=== PATIENT | female | born 1985 | race Caucasian/White ===

== ENCOUNTER → 2016-11-26 | Outpatient (REF) | payer OTHER | LOC: M LAB REF 17:52 | PROVIDERS: ATTEND Physician Assistant | DX: J20.9 Acute bronchitis, unspecified (principal); Z20.2 Contact with and (suspected) exposure to infections with a predominantly sexual mode of transmission ==

== ENCOUNTER → 2016-12-07 | Outpatient (REF) | payer OTHER ==
[2016-12-07 19:15] LABS: PERCENT SATURATION 30.7 % (13.2-37.4)
== END ==
LOC: M LAB REF 17:26
PROVIDERS: ATTEND Internal Medicine
DX: D50.9 Iron deficiency anemia, unspecified (principal)

== ENCOUNTER → 2017-02-22 | Outpatient (CLI) | payer OTHER | LOC: M WUC 15:25 | PROVIDERS: ATTEND Nurse Practitioner Women's Health | DX: Z11.3 Encounter for screening for infections with a predominantly sexual mode of transmission (principal) ==

== ENCOUNTER → 2017-02-22 | Outpatient (CLI) | payer OTHER ==
[2017-02-22 18:46] LABS: BLOOD UREA NITROGEN 14 MG/DL (7-18); CREATININE FOR GFR 0.83 MG/DL (0.55-1.02); GLOMERULAR FILTRATION RATE > 60.0 (>60)
== END ==
LOC: M WUC 15:29
PROVIDERS: ATTEND Physician Assistant
DX: M51.26 Other intervertebral disc displacement, lumbar region (principal)

== ENCOUNTER → 2017-12-21 | Outpatient (REF) | payer OTHER ==
[2017-12-21 13:14] LABS: IRON (FE) 64 UG/DL (50-170); PERCENT SATURATION 23.4 % (13.2-45.0); TOTAL IRON BINDING CAPACITY 274 UG/DL (250-450)
[2017-12-21 13:35] LABS: VITAMIN B12 LEVEL 554 PG/ML (247-911)
== END ==
LOC: M LAB REF 12:05
DX: D50.9 Iron deficiency anemia, unspecified (principal)

== ENCOUNTER 2018-03-02 02:21 | Emergency (ER) | payer OTHER ==
[2018-03-02] MEDS: EXPOSURE KIT-ADULT 7 DAY SUPPLY PO (03:00)
[2018-03-02] MEDS: HEPATITIS B IMMUNE GLOBULIN 5ML INJ (J1571) IM (03:03)
[2018-03-02 03:14] LABS: BASO % 0.5 % (0.0-1.0); EOS # 0.2 10^3/uL (0.0-0.50); EOS % 2.6 % (0.0-3.0); HEMATOCRIT 37.2 % (36.0-47.0); HEMOGLOBIN 12.5 g/dl (12.0-15.5); IMMATURE GRANULOCYTE % 0.5 % (0-3.0); LYMPH # 1.2 10^3/uL (1.5-4.5); LYMPH % 18.6 % (24.0-44.0); MEAN CORPUSCULAR HEMOGLOBIN 30.3 pg (27.0-33.0); MEAN CORPUSCULAR HGB CONC 33.6 g/dl (32.0-36.5); MEAN CORPUSCULAR VOLUME 90.1 fl (80.0-96.0); MONO # 0.8 10^3/uL (0.0-0.8); NEUTROPHILS # 4.3 10^3/uL (1.8-7.7); NEUTROPHILS % 65.8 % (36.0-66.0); PLATELET COUNT, AUTOMATED 240 10^3/uL (150-450); RED BLOOD COUNT 4.13 10^6/uL (4.00-5.40); RED CELL DISTRIBUTION WIDTH 12.7 % (11.5-14.5); WHITE BLOOD COUNT 6.5 10^3/uL (4.0-10.0)
[2018-03-02 03:38] LABS: ALBUMIN/GLOBULIN RATIO 0.95 (1.00-1.93); ALKALINE PHOSPHATASE 72 U/L (45-117); ALT/SGPT 25 U/L (12-78); ANION GAP 8 MEQ/L (8-16); AST/SGOT 15 U/L (7-37); BILIRUBIN,TOTAL 0.3 MG/DL (0.2-1.0); BLOOD UREA NITROGEN 18 MG/DL (7-18); CALCIUM LEVEL 8.5 MG/DL (8.5-10.1); CARBON DIOXIDE LEVEL 28 MEQ/L (21-32); CHLORIDE LEVEL 105 MEQ/L (98-107); CREATININE FOR GFR 0.77 MG/DL (0.55-1.30); GLOMERULAR FILTRATION RATE > 60.0 (>60); GLUCOSE, FASTING 96 MG/DL (70-100); POTASSIUM SERUM 4.6 MEQ/L (3.5-5.1); SODIUM LEVEL 141 MEQ/L (136-145); TOTAL PROTEIN 8.2 GM/DL (6.4-8.2)
[2018-03-02 04:16] LABS: CONTROL LINE INT CTR LINE PRESENT; HIV EXPOSED PT 1 NEGATIVE (NEGATIVE); HIVEXPOSED0 NEGATIVE (NEGATIVE)
[2018-03-04 08:58] LABS: HEPATITIS B SURFACE ANTIBODY POSITIVE (POSITIVE)
[2018-03-04 09:37] LABS: HEPATITIS C VIRUS ABY INDEX 0.1 INDEX (<0.8)
[2018-03-04 09:38] LABS: HEPATITIS B SURFACE ANTIGEN NEGATIVE (NEGATIVE)
== END 2018-03-02 03:26 | disposition home or self-care (01) ==
LOC: M ED 02:21
DX: Z77.21 Contact with and (suspected) exposure to potentially hazardous body fluids (principal)
CPT/HCPCS: J1571

== ENCOUNTER → 2018-03-15 | Outpatient (CLI) | payer OTHER | LOC: M WUC 11:28 | DX: Z11.3 Encounter for screening for infections with a predominantly sexual mode of transmission (principal) | CPT/HCPCS: 36415 ==

== ENCOUNTER → 2018-10-29 | Outpatient (CLI) | payer OTHER ==
[~2018-10-29] MED LIST: ALLE180T33 PO; GLUC500C5 PO; IRON325T7 PO; MELO15TA28 PO; RALT40TA PO; TIZA4CAP; TRUVTAB PO
[2018-10-29 09:59] LABS: BASO % 0.7 % (0.0-1.0); EOS # 0.2 10^3/uL (0.0-0.50); EOS % 5.2 % (0.0-3.0); HEMATOCRIT 37.9 % (36.0-47.0); HEMOGLOBIN 12.4 g/dl (12.0-15.5); LYMPH # 1.6 10^3/uL (1.5-4.5); LYMPH % 35.1 % (24.0-44.0); MEAN CORPUSCULAR HEMOGLOBIN 29.6 pg (27.0-33.0); MEAN CORPUSCULAR HGB CONC 32.7 g/dl (32.0-36.5); MEAN CORPUSCULAR VOLUME 90.5 fl (80.0-96.0); MONO # 0.5 10^3/uL (0.0-0.8); MONO % 10.7 % (0.0-5.0); NEUTROPHILS # 2.1 10^3/uL (1.8-7.7); NEUTROPHILS % 47.8 % (36.0-66.0); PLATELET COUNT, AUTOMATED 229 10^3/uL (150-450); RED BLOOD COUNT 4.19 10^6/uL (4.00-5.40); WHITE BLOOD COUNT 4.4 10^3/uL (4.0-10.0)
[2018-10-29 10:34] LABS: ALBUMIN 3.6 GM/DL (3.2-5.2); ALT/SGPT 33 U/L (12-78); BILIRUBIN,TOTAL 0.2 MG/DL (0.2-1.0); BLOOD UREA NITROGEN 10 MG/DL (7-18); CALCIUM LEVEL 8.3 MG/DL (8.5-10.1); CARBON DIOXIDE LEVEL 29 MEQ/L (21-32); CHLORIDE LEVEL 104 MEQ/L (98-107); CREATININE FOR GFR 0.78 MG/DL (0.55-1.30); GLOMERULAR FILTRATION RATE > 60.0 (>60); GLUCOSE, FASTING 88 MG/DL (70-100); HCG, SERUM QUANTITATIVE < 1.0 MIU/ML; POTASSIUM SERUM 3.6 MEQ/L (3.5-5.1); PROGESTERONE 0.36 NG/ML; SODIUM LEVEL 139 MEQ/L (136-145); TESTOSTERONE 24 NG/DL (14-76); TOTAL 25(OH) VITAMIN D 23.6 NG/ML (30.0-100.0); TOTAL PROTEIN 7.3 GM/DL (6.4-8.2)
--- NOTE | 2018-10-29 10:34 | REP ---
Clinical: Infertility. Technique: Transvaginal evaluation. Findings: Retroverted uterus measures 6.9 x 3.3 x 4.4 cm. Endometrial complex measures 9.4 mm thickness. No pelvic free fluid. Right ovary measures 3.7 x 2.0 x 3.3 cm and includes approximately 25 sub centimeter follicles measuring between 1.0 and 9.4 mm diameter along with 2.4 x 1.7 x 1.4 cm involuting follicle. Left ovary measures 3.0 x 2.2 x 2.7 cm and includes eight sub centimeter follicles between 2.0 and 8.7 mm diameter along with 1.4 x 1.0 cm involuting cyst / follicle. Impression: Normal appearance to the uterus. Primarily bilateral sub centimeter follicles as detailed above. Electronically Signed by Wily Rangel MD 10/29/2018 10:25 A
[2018-10-29 10:35] LABS: ESTRADIOL 44.6 PG/ML; FOLLICLE STIMULATING HORMONE 13.3 mIU/mL; LUTEINIZING HORMONE 6.6 mIU/mL; PROLACTIN 15.4 NG/ML
[2018-10-30 09:40] LABS: RUBELLA IgG QUALITATIVE IMMUNE (IMMUNE)
[2018-10-30 09:41] LABS: HEPATITIS B SURFACE ANTIGEN NEGATIVE (NEGATIVE)
[2018-10-30 10:09] LABS: HEPATITIS C VIRUS ABY INDEX < 0.0 INDEX (<0.8); HIV 1&2 SCREEN CENTAUR NEGATIVE (NEGATIVE)
[2018-11-06 00:06] LABS: ANTI MULLERIAN HORMONE 0.478 ng/mL (.); HERPES ZOSTER, VARICELLA IgG 1360 index (Immune >165); SMN1 COMMENTS Note (.); SMN1 INTERPRETATION Note (.); SMN1 METHOD/LIMITATIONS Note (.)
== END ==
LOC: M LAB 09:09
PROVIDERS: ATTEND Obstetrics & Gynecology Reproductive Endocrinology
DX: E28.9 Ovarian dysfunction, unspecified (principal)

== ENCOUNTER → 2019-04-25 | Outpatient (CLI) | payer OTHER ==
[~2019-04-25] MED LIST changes: +FERR325T82 PO; -IRON325T7 PO
[2019-04-25 09:15] LABS: THYROID STIMULATING HORMONE 2.25 uIU/ML (0.358-3.740)
[2019-04-25 09:37] LABS: PROGESTERONE 15.27 NG/ML
[2019-04-25 09:38] LABS: ESTRADIOL 81.5 PG/ML
== END ==
LOC: M LAB 08:26
PROVIDERS: ATTEND Obstetrics & Gynecology Reproductive Endocrinology
DX: E28.9 Ovarian dysfunction, unspecified (principal)

== ENCOUNTER → 2019-05-02 | Outpatient (CLI) | payer OTHER ==
[2019-05-02 09:45] LABS: HCG, SERUM QUANTITATIVE < 1.0 MIU/ML
[2019-05-02 10:08] LABS: PROGESTERONE 10.23 NG/ML
== END ==
LOC: M LAB 08:37
PROVIDERS: ATTEND Obstetrics & Gynecology Reproductive Endocrinology
DX: Z32.00 Encounter for pregnancy test, result unknown (principal)

== ENCOUNTER → 2019-05-27 | Outpatient (CLI) | payer OTHER ==
[2019-05-27 16:28] LABS: THYROID STIMULATING HORMONE 1.35 uIU/ML (0.358-3.740)
[2019-05-27 16:40] LABS: PROGESTERONE 20.73 NG/ML
== END ==
LOC: M LAB 15:35
PROVIDERS: ATTEND Obstetrics & Gynecology Reproductive Endocrinology
DX: E28.9 Ovarian dysfunction, unspecified (principal)

== ENCOUNTER → 2019-06-02 | Outpatient (CLI) | payer OTHER ==
[2019-06-02 12:26] LABS: HCG, SERUM QUANTITATIVE < 1.0 MIU/ML
[2019-06-02 13:54] LABS: PROGESTERONE 6.44 NG/ML
== END ==
LOC: M LAB 11:00
PROVIDERS: ATTEND Obstetrics & Gynecology Reproductive Endocrinology
DX: Z32.00 Encounter for pregnancy test, result unknown (principal)

== ENCOUNTER → 2019-06-06 | Outpatient (CLI) | payer OTHER ==
--- NOTE | 2019-06-06 14:28 | REP ---
Transvaginal pelvic sonography: History: Ovarian dysfunction. Follicle study. Findings: Uterine dimensions today are 7.3 x 3.7 x 4.2 cm. Endometrial echo is 1.1 cm thick and centrally placed. Uterus appears retroverted. No free fluid is seen. The overall dimensions of the right ovary are 3.4 x 2.3 x 1.9 cm. There are no follicles in the right ovary measuring greater than a centimeter. There are nine follicles in the right ovary ranging in size from 0.2-0.4 cm. The left ovary measures 3.0 x 1.6 x 2.3 cm. There are two follicles greater than a centimeter in the left ovary measured as follows: 1.2 x 0.6 and 1.0 x 0.8 cm. In addition, there are four follicles ranging in size from 0.2-0.4 cm in the left ovary. Impression: Ovarian follicle exam as above. Electronically Signed by Jarrod Kenney MD 06/06/2019 02:19 P
[2019-06-06 14:39] LABS: HCG, SERUM QUANTITATIVE < 1.0 MIU/ML
[2019-06-06 14:40] LABS: PROGESTERONE 0.46 NG/ML
[2019-06-06 14:41] LABS: FOLLICLE STIMULATING HORMONE 12.9 mIU/mL
== END ==
LOC: M LAB 13:25
PROVIDERS: ATTEND Obstetrics & Gynecology Reproductive Endocrinology
DX: E28.9 Ovarian dysfunction, unspecified (principal)

== ENCOUNTER → 2019-06-13 | Outpatient (CLI) | payer OTHER ==
--- NOTE | 2019-06-13 08:42 | REP ---
Pelvic ultrasound for follicle analysis: The studies performed with endovaginal imaging only. Right ovary: There is one follicle greater than 10 ml measuring 11.7 x 8.5 mm. Additionally, there are 10 follicles measuring 2.1 - 8.9 mm. The right ovary is normal size measuring 3.1 x 1.8 x 2.5 cm. Left ovary: There are two follicles greater than 10 units mm measuring 15.7 x 9.2 mm and 23.2 x 16.8 mm. There are five follicles in the 3.2 - 4.6 mm range. There is free fluid adjacent to the left ovary. The left ovary is normal size measuring 4.2 x 2.8 x 2.7 cm. The uterus is retroverted and normal size measuring 7.2 x 3.4 x 5.1 cm. The endometrial stripe measures 10 mm thickness and has a homogeneous appearance. Electronically Signed by Kb Yen MD 06/13/2019 08:34 A
[2019-06-13 08:45] LABS: ESTRADIOL 109.8 PG/ML; LUTEINIZING HORMONE 14.6 mIU/mL; PROGESTERONE 0.42 NG/ML
== END ==
LOC: M LAB 07:26
PROVIDERS: ATTEND Obstetrics & Gynecology Reproductive Endocrinology
DX: E28.9 Ovarian dysfunction, unspecified (principal)

== ENCOUNTER → 2019-06-30 | Outpatient (CLI) | payer OTHER ==
[2019-06-30 09:48] LABS: HCG, SERUM QUANTITATIVE < 1.0 MIU/ML
[2019-06-30 10:14] LABS: PROGESTERONE 51.46 NG/ML
== END ==
LOC: M LAB 08:37
PROVIDERS: ATTEND Obstetrics & Gynecology Reproductive Endocrinology
DX: Z32.00 Encounter for pregnancy test, result unknown (principal)

== ENCOUNTER → 2019-07-30 | Outpatient (CLI) | payer OTHER ==
--- NOTE | 2019-07-30 08:44 | REP ---
Clinical: Infertility. Technique: Transvaginal ultrasound examination with color evaluation. Findings: Uterus measures 7.4 x 3.5 x 5.0 cm. Endometrial complex measures 8.0 mm thickness. No discrete uterine or endometrial abnormalities appreciated. Right ovary measures 3.7 x 1.9 x 4.3 cm includes 10 x 5 mm follicle and approximately 10 sub centimeter follicles between 3 and 9 mm. Left ovary measures 4.1 x 3.0 x 2.5 cm and includes 10 mm hypoechoic structure likely representing hemorrhagic cyst and 27 x 12 mm follicle along with approximately nine sub centimeter follicles between 3 and 8 mm. Impression: Follicular study as detailed above. Electronically Signed by Wily Rangel MD 07/30/2019 08:35 A
[2019-07-30 10:00] LABS: ESTRADIOL 29.8 PG/ML; LUTEINIZING HORMONE 6.4 mIU/mL; PROGESTERONE 0.26 NG/ML
== END ==
LOC: M RAD 08:06
PROVIDERS: ATTEND Obstetrics & Gynecology Reproductive Endocrinology
DX: E28.9 Ovarian dysfunction, unspecified (principal)

== ENCOUNTER → 2019-08-05 | Outpatient (CLI) | payer OTHER ==
--- NOTE | 2019-08-05 14:21 | REP ---
TRANSVAGINAL PELVIC ULTRASOUND, FOLLICLE STUDY: Transvaginal pelvic ultrasound performed. Uterus measures 6.6 x 3.3 x 4.7 cm. Endometrial thickness is 4 mm. Right ovary measures 2.8 x 1.6 x 1.5 cm. There are two dominant follicles, which measure 9 x 10 mm and 8 x 11 mm. Approximately four other follicles are seen in the right ovary 4-8 mm in diameter. Left ovary measures 3.2 x 2.1 x 2.0 cm. There are three dominant follicles measuring 10 x 9 mm, 16 x 13 mm, and 12 x 19 mm. There are approximately four other follicles which range 3-8 mm in diameter. Electronically Signed by Kb Durham MD 08/05/2019 04:58 P
[2019-08-05 14:30] LABS: ESTRADIOL 45.8 PG/ML; LUTEINIZING HORMONE 6.6 mIU/mL; PROGESTERONE 0.39 NG/ML
== END ==
LOC: M RAD 12:13
PROVIDERS: ATTEND Obstetrics & Gynecology Reproductive Endocrinology
DX: E28.9 Ovarian dysfunction, unspecified (principal)

== ENCOUNTER → 2019-08-08 | Outpatient (CLI) | payer OTHER ==
--- NOTE | 2019-08-08 09:52 | REP ---
Clinical: Ovarian dysfunction. Technique: Transvaginal examination. Comparison: 08/05/2019. Findings: Uterus measures 7.4 x 3.1 x 5.2 cm. Endometrial complex measures 7.9 mm thickness and has a normal translaminar appearance. No endocervical fluid or free fluid is appreciated. Right ovary measures 2.6 x 1.7 x 1.6 cm and includes eight sub centimeter follicles between 2.4 mm and 9.8 mm. Left ovary measures 3.6 x 2.6 x 2.1 cm and includes 2.3 cm follicle, 2.3 cm complex cyst / follicle with debris level, and eight sub centimeter follicles between 3.1 and 9.1 mm. Impression: Trilaminar appearance to the endometrial complex. Follicles as noted above. Electronically Signed by Wily Rangel MD 08/08/2019 09:44 A
[2019-08-08 11:00] LABS: LUTEINIZING HORMONE 10.2 mIU/mL; PROGESTERONE 0.26 NG/ML
== END ==
LOC: M RAD 09:01
PROVIDERS: ATTEND Obstetrics & Gynecology Reproductive Endocrinology
DX: E28.9 Ovarian dysfunction, unspecified (principal)

== ENCOUNTER → 2019-08-18 | Outpatient (CLI) | payer OTHER ==
[2019-08-18 20:51] LABS: THYROID STIMULATING HORMONE 1.6 uIU/ML (0.358-3.740)
[2019-08-18 20:52] LABS: ESTRADIOL 64.3 PG/ML; PROGESTERONE 36.29 NG/ML
== END ==
LOC: M WUC 15:32
PROVIDERS: ATTEND Obstetrics & Gynecology Reproductive Endocrinology
DX: E28.9 Ovarian dysfunction, unspecified (principal)

== ENCOUNTER → 2019-08-25 | Outpatient (CLI) | payer OTHER ==
[2019-08-25 09:58] LABS: HCG, SERUM QUANTITATIVE < 1.0 MIU/ML
[2019-08-25 10:06] LABS: PROGESTERONE 32.51 NG/ML
== END ==
LOC: M WUC 08:17
PROVIDERS: ATTEND Obstetrics & Gynecology Reproductive Endocrinology
DX: Z32.00 Encounter for pregnancy test, result unknown (principal); Z79.899 Other long term (current) drug therapy

== ENCOUNTER → 2019-09-29 | Outpatient (CLI) | payer OTHER | LOC: M LAB 09:13 | PROVIDERS: ATTEND Obstetrics & Gynecology Reproductive Endocrinology | DX: E28.9 Ovarian dysfunction, unspecified (principal) ==

== ENCOUNTER → 2019-10-03 | Outpatient (CLI) | payer OTHER ==
--- NOTE | 2019-10-03 07:47 | REPVR ---
PROCEDURE INFORMATION: Exam: CT Maxillofacial Without Contrast, Sinus Exam date and time: 10/03/2019 7:26 AM Age: 34 years old Clinical indication: Condition or disease; Other: Recurrent maxillary sinusitis; Additional info: Acute recurrent maxillary sinusitis TECHNIQUE: Imaging protocol: CT Maxillofacial without contrast. Focus on the sinuses. Radiation optimization: All CT scans at this facility use at least one of these dose optimization techniques: automated exposure control; mA and/or kV adjustment per patient size (includes targeted exams where dose is matched to clinical indication); or iterative reconstruction. COMPARISON: CT Maxilofacial w/out contrast 07/23/2012 11:19 AM FINDINGS: Frontal sinuses: Normal. No air-fluid levels. Ethmoid air cells: Normal. No air-fluid levels. Sphenoid sinuses: Normal. No air-fluid levels. Maxillary sinuses: Normal. No air-fluid levels. Ostiomeatal units are patent. Orbits: Orbits are normal. Globes are unremarkable. Nasal cavity/Septum: There is nasal septal deviation to the right. Soft tissues: Unremarkable. Bones/joints: Unremarkable. IMPRESSION: Unremarkable sinuses. Electronically signed by: Zaheer العلي On 10/03/2019 07:47:10 AM
== END ==
LOC: M RAD 07:12
PROVIDERS: ATTEND Specialist
DX: J01.01 Acute recurrent maxillary sinusitis (principal); J34.2 Deviated nasal septum; J31.0 Chronic rhinitis

== ENCOUNTER → 2019-10-14 | Outpatient (CLI) | payer OTHER ==
[2019-10-14 10:36] LABS: HCG, SERUM QUANTITATIVE < 1.0 MIU/ML
[2019-10-14 11:08] LABS: ESTRADIOL 35.6 PG/ML; FOLLICLE STIMULATING HORMONE 14.3 mIU/mL; LUTEINIZING HORMONE 7.4 mIU/mL; PROGESTERONE 0.21 NG/ML
--- NOTE | 2019-10-17 09:48 | REP ---
Clinical: Infertility. Technique: Transvaginal examination. Findings: Uterus measures 6.8 x 3.3 x 5.1 cm. Endometrial complex measures 7.4 mm thickness and demonstrates normal trilaminar appearance. No pelvic or endocervical fluid. Right ovary measures 2.9 x 1.9 x 2.7 cm and includes 9 sub centimeter follicles measuring between 1.8 mm and 8.6 mm. Left ovary measures 3.2 x 2.0 x 2.3 cm includes 13 sub centimeter follicles measuring between 1.7 mm and 5.9 mm. A single complex cyst measures 10.5 x 8.1 mm. Small amount of free fluid in the pelvis noted. Impression: Bilateral sub centimeter follicles. Electronically Signed by Wily Rangel MD 10/17/2019 09:40 A
== END ==
LOC: M RAD 08:45
PROVIDERS: ATTEND Obstetrics & Gynecology Reproductive Endocrinology
DX: N83.202 Unspecified ovarian cyst, left side (principal); E28.9 Ovarian dysfunction, unspecified; Z79.899 Other long term (current) drug therapy

== ENCOUNTER → 2019-10-20 | Outpatient (CLI) | payer OTHER ==
--- NOTE | 2019-10-20 08:58 | REP ---
Clinical: Infertility. Comparison: 10/14/2019. Technique: Transvaginal ultrasound examination. Findings: Uterus measures 8.3 x 3.3 x 4.6 cm. Endometrial complex measures 3.6 mm thickness. Small amount of fluid in the left grisel pelvis adjacent to the ovary noted. Right ovary measures 4.2 x 2.2 x 3.2 cm and includes 10.1 x 8.1 mm, 16.8 x 12.1 mm, 11.8 x 9.7 mm, and 15.3 x 11.7 mm follicles along with seven sub centimeter follicles measuring between 1.6 mm and 8.4 mm. Left ovary measures 3.0 x 2.3 x 2.3 cm and includes 11.7 x 9.2 cm complex and eight sub centimeter follicles measuring between 1.8 mm and 8.8 mm. Impression: Bilateral follicles as noted above. Electronically Signed by Wily Rangel MD 10/20/2019 08:49 A
[2019-10-20 11:01] LABS: ESTRADIOL 72.8 PG/ML; LUTEINIZING HORMONE 7.4 mIU/mL; PROGESTERONE 0.21 NG/ML
== END ==
LOC: M RAD 08:02
PROVIDERS: ATTEND Obstetrics & Gynecology Reproductive Endocrinology
DX: E28.9 Ovarian dysfunction, unspecified (principal)

== ENCOUNTER → 2019-10-22 | Outpatient (CLI) | payer OTHER ==
--- NOTE | 2019-10-22 09:53 | REP ---
Clinical: Infertility. Comparison: 10/20/2019. Technique: Transvaginal ultrasound examination with color evaluation. Findings: Uterus measures 7.3 x 3.5 x 5.7 cm. Endometrial complex measures 9.6 mm thickness. Right ovary measures 4.8 x 1.6 x 4.9 cm with 14 x 10 mm, 20 x 10 mm, 16 x 8 mm, 13 x 8 mm, and 17 x 11 mm follicles along with five sub centimeter follicles measuring between 4 - 7 mm. Left ovary measures 2.6 x 2.0 x 2.6 cm with 10 x 8 mm and 10 x 7 mm follicles along with eight sub centimeter follicles measuring between 3 - 6 mm. 15 mm complex cyst also identified. Trace pelvic free fluid adjacent to the left ovary is nonspecific. Impression: Follicular study as noted above. Electronically Signed by Wily Rangel MD 10/22/2019 09:04 A
[2019-10-22 11:12] LABS: ESTRADIOL 172.4 PG/ML; LUTEINIZING HORMONE 9.3 mIU/mL; PROGESTERONE 0.21 NG/ML
== END ==
LOC: M RAD 08:30
PROVIDERS: ATTEND Obstetrics & Gynecology Reproductive Endocrinology
DX: E28.9 Ovarian dysfunction, unspecified (principal)

== ENCOUNTER → 2019-11-05 | Outpatient (CLI) | payer OTHER ==
[2019-11-05 14:17] LABS: ESTRADIOL 200.6 PG/ML; PROGESTERONE 12.43 NG/ML
== END ==
LOC: M LAB 12:37
PROVIDERS: ATTEND Obstetrics & Gynecology Reproductive Endocrinology
DX: E28.9 Ovarian dysfunction, unspecified (principal)

== ENCOUNTER → 2019-11-10 | Outpatient (CLI) | payer OTHER ==
[2019-11-10 11:00] LABS: HCG, SERUM QUANTITATIVE < 1.0 MIU/ML
[2019-11-10 11:06] LABS: PROGESTERONE 31.91 NG/ML
== END ==
LOC: M LAB 09:50
PROVIDERS: ATTEND Obstetrics & Gynecology Reproductive Endocrinology
DX: Z32.00 Encounter for pregnancy test, result unknown (principal)

== ENCOUNTER → 2019-11-13 | Outpatient (CLI) | payer OTHER ==
--- NOTE | 2019-11-13 12:26 | REP ---
Transvaginal pelvic sonography: History: Infertility. Findings: Uterine dimensions today are 8.5 x 3.2 x 5.6 cm. Endometrial stripe is 0.6 cm. It has a trilaminar appearance. No free fluid is seen. Overall dimensions of the right ovary today are 2.8 x 1.5 x 1.7 cm. There are no follicles larger than a centimeter in the right ovary. There are eight follicles within the right ovary ranging in size from 0.2-0.9 cm in greatest diameter. Left ovary's dimensions are 2.7 x 2.0 x 2.3 cm. There is a 1.0 x 0.6 x 0.9 cm partially collapsed appearing follicle in the left ovary and a 1.0 x 0.7 cm follicle. There are six follicles in the left ovary ranging in size from 0.2-0.6 cm. Impression: Ovarian follicle study as above. Electronically Signed by Jarrod Kenney MD 11/13/2019 12:18 P
[2019-11-13 12:52] LABS: HCG, SERUM QUANTITATIVE < 1.0 MIU/ML
[2019-11-13 12:54] LABS: ESTRADIOL 19.2 PG/ML; FOLLICLE STIMULATING HORMONE 16.7 mIU/mL; LUTEINIZING HORMONE 7.2 mIU/mL; PROGESTERONE 1.42 NG/ML
== END ==
LOC: M RAD 11:29
PROVIDERS: ATTEND Obstetrics & Gynecology Reproductive Endocrinology
DX: E28.9 Ovarian dysfunction, unspecified (principal); Z79.899 Other long term (current) drug therapy

== ENCOUNTER → 2019-11-19 | Outpatient (CLI) | payer OTHER ==
[2019-11-19 09:23] LABS: ESTRADIOL 212.4 PG/ML; PROGESTERONE 0.31 NG/ML
--- NOTE | 2019-11-19 15:33 | REP ---
Transvaginal pelvic sonography: History: Ovarian dysfunction. Follicle study. Findings: Uterine dimensions are normal measured at 6.9 x 3.2 x 5.2 cm. Endometrial stripe is 1.0 cm thick, trilaminar appearance . No focal uterine mass is seen. No free fluid is seen in the cul-de-sac. The overall dimensions of the right ovary are 3.8 x 2.5 x 2.8 cm. There are four follicles in the right ovary measuring greater than 1 cm as follows: 1.5 x 1.1, 1.3 x 0.9, 1.3 x 0.7, 1.1 x 0.4 cm. In addition, the right ovary contains nine follicles ranging in size from 0.1-0.3 cm. The overall dimensions of the left ovary are 2.9 x 2.3 x 3.0 cm. There is a 1.2 x 0.9 cm follicle left ovary and there are eight follicles in the left ovary ranging in size from 0.2-0.8 cm. Impression: Ovarian follicle study as above. Electronically Signed by Jarrod Kenney MD 11/19/2019 08:30 A
== END ==
LOC: M RAD 07:35
PROVIDERS: ATTEND Obstetrics & Gynecology Reproductive Endocrinology
DX: E28.9 Ovarian dysfunction, unspecified (principal)

== ENCOUNTER → 2019-11-21 | Outpatient (CLI) | payer OTHER ==
--- NOTE | 2019-11-21 07:41 | REPVR ---
PROCEDURE INFORMATION: Exam: US Pelvis, Transvaginal Exam date and time: 11/21/2019 7:05 AM Age: 34 years old Clinical indication: Screening exam; Fertility exam; Additional info: Infertility, ovarian dysfunction TECHNIQUE: Imaging protocol: Real-time transvaginal pelvic ultrasound with image documentation. Transvaginal imaging was used for better evaluation of the endometrium and adnexa. COMPARISON: Transvaginal NON- US 11/19/2019 7:51 AM FINDINGS: Uterus/cervix: Uterus measures 7.5 x 3.6 x 5.5 cm. Endometrial stripe is 8 mm. Nabothian cyst. Right adnexa: Right ovary measures 2.7 x 4.9 x 2.3 cm. There is a simple 2 x 1.2 cm right ovarian cyst. Two adjacent smaller simple appearing cysts measuring 1.6 x 1 and 1.5 x 0.8 cm are noted. There are 2 additional subcentimeter right ovarian follicles ranging from 4-6 mm. Left adnexa: Left ovary measures 3.2 x 3.8 x 2 cm. There is a 1.5 x 1.1 cm simple appearing left ovarian cyst. Five subcentimeter left ovarian follicles region in size from 2-6 mm. Free fluid: None. IMPRESSION: 1. Left ovary measures 3.2 x 3.8 x 2 cm. There is a 1.5 x 1.1 cm simple appearing left ovarian cyst. Five subcentimeter left ovarian follicles region in size from 2-6 mm. 2. Right ovary measures 2.7 x 4.9 x 2.3 cm. There is a simple 2 x 1.2 cm right ovarian cyst. Two adjacent smaller simple appearing cysts measuring 1.6 x 1 and 1.5 x 0.8 cm are noted. There are 2 additional subcentimeter right ovarian follicles ranging from 4-6 mm. Electronically signed by: Zelalem Ray On 11/21/2019 07:41:34 AM
[2019-11-21 09:29] LABS: ESTRADIOL 522.2 PG/ML; LUTEINIZING HORMONE 2.6 mIU/mL; PROGESTERONE 0.21 NG/ML
== END ==
LOC: M RAD 06:32
PROVIDERS: ATTEND Obstetrics & Gynecology Reproductive Endocrinology
DX: N83.201 Unspecified ovarian cyst, right side (principal); N83.202 Unspecified ovarian cyst, left side; E28.9 Ovarian dysfunction, unspecified

== ENCOUNTER → 2019-12-01 | Outpatient (CLI) | payer OTHER ==
[2019-12-01 09:11] LABS: HCG, SERUM QUANTITATIVE < 1.0 MIU/ML
== END ==
LOC: M LAB 08:26
PROVIDERS: ATTEND Obstetrics & Gynecology Reproductive Endocrinology
DX: Z32.00 Encounter for pregnancy test, result unknown (principal); Z79.899 Other long term (current) drug therapy

== ENCOUNTER → 2019-12-08 | Outpatient (CLI) | payer OTHER ==
[2019-12-08 10:51] LABS: PROGESTERONE 10.9 NG/ML
== END ==
LOC: M LAB 09:56
PROVIDERS: ATTEND Obstetrics & Gynecology Reproductive Endocrinology
DX: Z32.00 Encounter for pregnancy test, result unknown (principal)

== ENCOUNTER → 2019-12-10 | Outpatient (CLI) | payer OTHER ==
[2019-12-10 09:03] LABS: PROGESTERONE 11.01 NG/ML
== END ==
LOC: M LAB 07:15
PROVIDERS: ATTEND Obstetrics & Gynecology Reproductive Endocrinology
DX: Z32.01 Encounter for pregnancy test, result positive (principal); Z79.899 Other long term (current) drug therapy

== ENCOUNTER → 2020-05-27 | Outpatient (CLI) | payer SELFPAY | LOC: M LABSMTC 13:07 | PROVIDERS: ATTEND Pediatrics | DX: Z20.828 Contact with and (suspected) exposure to other viral communicable diseases (principal) ==

== ENCOUNTER → 2020-06-21 | Outpatient (REF) | payer OTHER ==
[2020-06-21 14:19] LABS: PERCENT SATURATION 25.4 % (13.2-45.0)
== END ==
LOC: M LAB REF 12:39
PROVIDERS: ATTEND Internal Medicine
DX: D50.9 Iron deficiency anemia, unspecified (principal)

== ENCOUNTER → 2020-09-01 | Outpatient (CLI) | payer OTHER ==
[2020-09-01 11:50] LABS: ESTRADIOL 506.6 PG/ML; PROGESTERONE 35.92 NG/ML
== END ==
LOC: M LAB 10:32
PROVIDERS: ATTEND Obstetrics & Gynecology Reproductive Endocrinology
DX: E28.9 Ovarian dysfunction, unspecified (principal)

== ENCOUNTER → 2020-09-07 | Outpatient (CLI) | payer OTHER ==
[2020-09-07 09:09] LABS: HCG, SERUM QUANTITATIVE < 1.0 MIU/ML
[2020-09-07 09:32] LABS: PROGESTERONE 26.83 NG/ML
== END ==
LOC: M LAB 08:08
PROVIDERS: ATTEND Obstetrics & Gynecology Reproductive Endocrinology
DX: Z32.00 Encounter for pregnancy test, result unknown (principal)

== ENCOUNTER → 2020-09-14 | Outpatient (CLI) | payer OTHER ==
--- NOTE | 2020-09-14 12:53 | REP ---
INDICATION: OVARIAN DYSFUNCTION, UNSPECIFIED, LABS 1ST. COMPARISON: 11/21/2019. TECHNIQUE: Transvaginal pelvic ultrasound performed to evaluate ovarian follicles. FINDINGS: The uterus measures 8.9 x 4.1 by 5.6 cm. The endometrial echo complex measures 4 mm. There is no new medial fluid collection. There is trace free fluid in the cul-de-sac. Right ovary measures 3.8 x 3.4 x 1.6 cm. A dominant follicle measures 11 x 6 mm. Approximately 6 other subcentimeter follicles are seen. A complex follicle measures 12 x 7 mm. Left ovary measures 3.4 x 2.4 x 2.2 cm. Multiple subcentimeter follicles are seen with no follicle equal to or greater than 1 cm in diameter. IMPRESSION: Ovarian follicles as above. <Electronically signed by Kb Durham > 09/14/20 [id number]
[2020-09-14 15:10] LABS: HCG, SERUM QUANTITATIVE < 1.0 MIU/ML
[2020-09-14 15:16] LABS: ESTRADIOL 27.3 PG/ML; FOLLICLE STIMULATING HORMONE 18.5 mIU/mL; LUTEINIZING HORMONE 4.3 mIU/mL; PROGESTERONE 0.38 NG/ML
== END ==
LOC: M LAB 11:17
PROVIDERS: ATTEND Obstetrics & Gynecology Reproductive Endocrinology
DX: N83.01 Follicular cyst of right ovary (principal); N83.02 Follicular cyst of left ovary

== ENCOUNTER → 2020-09-30 | Outpatient (CLI) | payer OTHER ==
[2020-09-30 12:29] LABS: ESTRADIOL 370.1 PG/ML; PROGESTERONE 30.37 NG/ML
== END ==
LOC: M LAB 11:20
PROVIDERS: ATTEND Obstetrics & Gynecology Reproductive Endocrinology
DX: E28.9 Ovarian dysfunction, unspecified (principal)

== ENCOUNTER → 2020-10-06 | Outpatient (CLI) | payer OTHER ==
[2020-10-06 12:37] LABS: HCG, SERUM QUANTITATIVE < 1.0 MIU/ML
[2020-10-06 14:40] LABS: PROGESTERONE 20.64 NG/ML
== END ==
LOC: M LAB 11:20
PROVIDERS: ATTEND Obstetrics & Gynecology Reproductive Endocrinology
DX: Z32.00 Encounter for pregnancy test, result unknown (principal)

== ENCOUNTER → 2020-12-20 | Outpatient (REF) | payer OTHER ==
[2020-12-20 19:40] LABS: PERCENT SATURATION 25.6 % (13.2-45.0)
== END ==
LOC: M LAB REF 16:22
PROVIDERS: ATTEND Internal Medicine
DX: D50.9 Iron deficiency anemia, unspecified (principal)

== ENCOUNTER → 2021-04-15 | Outpatient (CLI) | payer OTHER ==
[~2021-04-15] MED LIST changes: +EMTR1TAB16 PO; -TRUVTAB PO
--- NOTE | 2021-04-15 20:57 | REPVR ---
PROCEDURE INFORMATION: Exam: MR Cervical Spine Without Contrast Exam date and time: 04/15/2021 6:47 PM Age: 36 years old Clinical indication: Pain; Cervicalgia; Additional info: Disc like symptoms TECHNIQUE: Imaging protocol: Multiplanar magnetic resonance images of the cervical spine without contrast. COMPARISON: CT Maxilofacial w/out contrast 10/03/2019 7:26 AM FINDINGS: Vertebrae: The alignment of the cervical spine is within normal limits. There is no fracture or subluxation. The vertebral body heights are preserved. The bone marrow signal is unremarkable. There is no infiltrative marrow replacing process. Spinal cord: Normal. No cord compression. No spinal cord edema or hemorrhage. Spinal epidural space: No abnormal epidural fluid collection. C2-C3: The disc height is preserved. No disc herniation, spinal canal stenosis, or neural foraminal stenosis is noted. The facet joints are unremarkable. C3-C4: There is minimal loss of disc height, a broad-based posterior disc osteophyte complex, and endplate spurs projecting anteriorly. No spinal canal stenosis or neural foraminal stenosis is noted. The facet joints are unremarkable. C4-C5: There is minimal loss of disc height, a broad-based posterior disc osteophyte complex, and endplate spurs projecting anteriorly. No spinal canal stenosis or neural foraminal stenosis is noted. The facet joints are unremarkable. C5-C6: The disc height is preserved. There is a posterior bulge and endplate spurs projecting anteriorly. No spinal canal stenosis or neural foraminal stenosis is noted. The facet joints are unremarkable. C6-C7: The disc height is preserved. There is a small central protrusion. No spinal canal stenosis or neural foraminal stenosis is noted. The facet joints are unremarkable. C7-T1: The disc height is preserved. No disc herniation, spinal canal stenosis, or neural foraminal stenosis is noted. The facet joints are unremarkable. T1-T2: Axial imaging was not performed at this level. The disc height is preserved. No disc herniation, spinal canal stenosis, or neural foraminal stenosis is noted. The facet joints are unremarkable. Soft tissues: Unremarkable. No ligamentous sprain or muscular strain. No paraspinal soft tissue fluid collection. Thyroid: The thyroid gland is heterogeneous in appearance. Vertebral arteries: There are expected flow voids in the vertebral arteries. IMPRESSION: 1. No spinal canal stenosis, neural foraminal stenosis, nerve root impingement, or spinal cord compression in the cervical spine. 2. C3-C4: Minimal loss of disc height, a broad-based posterior disc osteophyte complex, and endplate spurs projecting anteriorly. 3. C4-C5: Minimal loss of disc height, a broad-based posterior disc osteophyte complex, and endplate spurs projecting anteriorly. 4. C5-C6: Posterior bulge and endplate spurs projecting anteriorly. 5. C6-C7: Small central protrusion. Electronically signed by: Jhon Hoffmann On 04/15/2021 20:57:16 PM
== END ==
LOC: M RAD 18:16
PROVIDERS: ATTEND Chiropractor
DX: R93.7 Abnormal findings on diagnostic imaging of other parts of musculoskeletal system (principal); M50.90 Cervical disc disorder, unspecified, unspecified cervical region; M99.01 Segmental and somatic dysfunction of cervical region

== ENCOUNTER → 2021-10-06 | Outpatient (REF) | payer OTHER ==
[2021-10-06 13:02] LABS: PERCENT SATURATION 40.7 % (13.2-45.0)
== END ==
LOC: M LAB REF 12:07
PROVIDERS: ATTEND Internal Medicine
DX: D50.9 Iron deficiency anemia, unspecified (principal)

== ENCOUNTER → 2021-10-17 | Outpatient (CLI) | payer OTHER ==
[2021-10-17 09:23] LABS: HCG, SERUM QUANTITATIVE < 1.0 MIU/ML
[2021-10-17 12:54] LABS: ESTRADIOL 34.3 PG/ML; FOLLICLE STIMULATING HORMONE 12.5 mIU/mL; LUTEINIZING HORMONE 5.9 mIU/mL; PROGESTERONE 0.45 NG/ML
== END ==
LOC: M LAB 07:26
PROVIDERS: ATTEND Obstetrics & Gynecology Reproductive Endocrinology
DX: Z31.83 Encounter for assisted reproductive fertility procedure cycle (principal); E28.9 Ovarian dysfunction, unspecified

== ENCOUNTER → 2021-10-21 | Outpatient (CLI) | payer OTHER ==
[2021-10-21 08:25] LABS: ESTRADIOL 287.7 PG/ML; LUTEINIZING HORMONE 5.5 mIU/mL; PROGESTERONE 0.33 NG/ML
== END ==
LOC: M RAD 06:49
PROVIDERS: ATTEND Obstetrics & Gynecology Reproductive Endocrinology
DX: N97.9 Female infertility, unspecified (principal)

== ENCOUNTER → 2021-10-24 | Outpatient (CLI) | payer OTHER ==
[2021-10-24 13:41] LABS: ESTRADIOL 1036.5 PG/ML; LUTEINIZING HORMONE 2.4 mIU/mL; PROGESTERONE 0.34 NG/ML
== END ==
LOC: M LAB 12:37
PROVIDERS: ATTEND Obstetrics & Gynecology Reproductive Endocrinology
DX: N97.9 Female infertility, unspecified (principal)

== ENCOUNTER → 2021-10-26 | Outpatient (CLI) | payer OTHER ==
[2021-10-26 08:22] LABS: ESTRADIOL 1601.4 PG/ML; LUTEINIZING HORMONE 1.8 mIU/mL; PROGESTERONE 0.39 NG/ML
== END ==
LOC: M RAD 07:07 → M LAB 07:07
PROVIDERS: ATTEND Obstetrics & Gynecology Reproductive Endocrinology
DX: N97.9 Female infertility, unspecified (principal)

== ENCOUNTER → 2021-11-07 | Outpatient (CLI) | payer OTHER ==
[2021-11-08 11:31] LABS: ESTRADIOL 589.9 PG/ML; PROGESTERONE 30.11 NG/ML
== END ==
LOC: M LAB 11:39
PROVIDERS: ATTEND Obstetrics & Gynecology Reproductive Endocrinology
DX: Z31.49 Encounter for other procreative investigation and testing (principal)

== ENCOUNTER → 2021-11-14 | Outpatient (CLI) | payer OTHER ==
[2021-11-14 07:41] LABS: HCG, SERUM QUANTITATIVE < 1.0 MIU/ML
[2021-11-14 09:41] LABS: PROGESTERONE 34.52 NG/ML
== END ==
LOC: M LAB 06:50
PROVIDERS: ATTEND Obstetrics & Gynecology Reproductive Endocrinology
DX: Z32.00 Encounter for pregnancy test, result unknown (principal)

== ENCOUNTER → 2021-11-22 | Outpatient (CLI) | payer OTHER ==
[2021-11-22 15:10] LABS: HCG, SERUM QUANTITATIVE < 1.0 MIU/ML; THYROID STIMULATING HORMONE 0.715 uIU/ML (0.358-3.740)
[2021-11-22 15:13] LABS: LUTEINIZING HORMONE 5.1 mIU/mL; PROGESTERONE 0.44 NG/ML
[2021-11-22 15:14] LABS: ESTRADIOL 27.3 PG/ML; FOLLICLE STIMULATING HORMONE 21.3 mIU/mL
== END ==
LOC: M LAB 13:22
PROVIDERS: ATTEND Obstetrics & Gynecology Reproductive Endocrinology
DX: E28.9 Ovarian dysfunction, unspecified (principal)

== ENCOUNTER → 2022-04-24 | Outpatient (REF) | payer OTHER | LOC: M LAB REF 16:17 | PROVIDERS: ATTEND Internal Medicine | DX: D50.9 Iron deficiency anemia, unspecified (principal) ==

== ENCOUNTER 2022-07-13 10:39 | Emergency (ER) | payer OTHER ==
[~2022-07-13] VITALS: Ht 165.1 cm; Wt 95.5 kg
[~2022-07-13 10:39] MED LIST changes: +RALTEGRAVIR 400 MG TAB (ISENTRESS) PO SCH; +TRUVADA 200MG/300MG TABLET PO SCH
[2022-07-13 12:02] LABS: BASO # 0.1 10^3/uL (0.0-0.2); BASO % 0.5 % (0.0-1.0); EOS % 0.3 % (0.0-3.0); HEMATOCRIT 41.6 % (36.0-47.0); HEMOGLOBIN 13.6 g/dl (12.0-15.5); LYMPH # 2.5 10^3/uL (1.5-5.0); LYMPH % 21.3 % (24.0-44.0); MEAN CORPUSCULAR HEMOGLOBIN 29.6 pg (27.0-33.0); MEAN CORPUSCULAR HGB CONC 32.7 g/dl (32.0-36.5); MEAN CORPUSCULAR VOLUME 90.6 fl (80.0-96.0); MONO # 1.3 10^3/uL (0.0-0.8); MONO % 11.3 % (2.0-8.0); NEUTROPHILS # 7.6 10^3/uL (1.5-8.5); NEUTROPHILS % 64.4 % (36.0-66.0); PLATELET COUNT, AUTOMATED 304 10^3/uL (150-450); RED BLOOD COUNT 4.59 10^6/uL (4.00-5.40); WHITE BLOOD COUNT 11.8 10^3/uL (4.0-10.0)
[2022-07-13 12:35] LABS: ALBUMIN 3.7 GM/DL (3.2-5.2); ALT/SGPT 41 U/L (12-78); BILIRUBIN,TOTAL 0.4 MG/DL (0.2-1.0); BLOOD UREA NITROGEN 16 MG/DL (7-18); CALCIUM LEVEL 8.7 MG/DL (8.5-10.1); CARBON DIOXIDE LEVEL 26 MEQ/L (21-32); CHLORIDE LEVEL 103 MEQ/L (98-107); CREATININE FOR GFR 0.78 MG/DL (0.55-1.30); GLOMERULAR FILTRATION RATE > 60.0 (>60); GLUCOSE, FASTING 107 MG/DL (70-100); POTASSIUM SERUM 3.8 MEQ/L (3.5-5.1); SODIUM LEVEL 138 MEQ/L (136-145); TOTAL PROTEIN 7.9 GM/DL (6.4-8.2)
[2022-07-13] MEDS ORDERED: EXPOSURE KIT-ADULT 7 DAY SUPPLY PO ONE (12:40)
[2022-07-13] MEDS ORDERED: TRUVADA 200MG/300MG TABLET PO ONE (12:50)
[2022-07-13] MEDS ORDERED: RALTEGRAVIR 400 MG TAB (ISENTRESS) PO ONE (12:50)
[2022-07-13 12:59] LABS: HCG, SERUM QUALITATIVE NEGATIVE (NEGATIVE)
[2022-07-13] MEDS ORDERED: EMTR1TAB16 PO (13:18)
[2022-07-13] MEDS ORDERED: RALT40TA PO (13:18)
[2022-07-13 13:20] LABS: HEPATITIS B SURFACE ANTIBODY POSITIVE (POSITIVE)
[2022-07-13 13:31] LABS: HEPATITIS B SURFACE ANTIGEN NEGATIVE (NEGATIVE)
[2022-07-13 13:34] VITALS: BP 142/88
[2022-07-13 13:59] LABS: HEPATITIS C VIRUS ABY INDEX 0.1 INDEX (<0.8)
[2022-07-13 14:00] LABS: HIV 1&2 SCREEN CENTAUR NEGATIVE (NEGATIVE)
== END 2022-07-13 13:40 | disposition home or self-care (01) ==
LOC: M ED 10:39
DX: Z77.21 Contact with and (suspected) exposure to potentially hazardous body fluids (principal); Y92.9 Unspecified place or not applicable; Y93.89 Activity, other specified; Y99.0 Civilian activity done for income or pay

== ENCOUNTER → 2023-03-05 | Outpatient (CLI) | payer OTHER ==
[~2023-03-05] MED LIST changes: -RALTEGRAVIR 400 MG TAB (ISENTRESS) PO SCH; -TRUVADA 200MG/300MG TABLET PO SCH
== END ==
LOC: M SLEEP 20:00
PROVIDERS: ATTEND Physician Assistant
DX: R40.0 Somnolence (principal)

== ENCOUNTER 2023-04-19 18:38 | Emergency (ER) | payer OTHER ==
[~2023-04-19] VITALS: Ht 167.6 cm; Wt 102.9 kg
[2023-04-19] MEDS ORDERED: FAMOTIDINE 20MG/2ML VIAL IVP ONE (20:10)
[2023-04-19] MEDS ORDERED: methylPREDNISolone 125MG 2ML VIAL IV ONE (20:10)
[2023-04-19] MEDS ORDERED: NS 1,000 ML IV ONE (20:10)
[2023-04-19] MEDS ORDERED: ONDANSETRON 4MG 2ML VIAL IV ONE (20:15)
[2023-04-19] MEDS ORDERED: PRED20TA PO (20:17)
[2023-04-19] MEDS ORDERED: ONDA4TAB6 PO (20:17)
[2023-04-19] MEDS ORDERED: CETI10CH PO (20:17)
[2023-04-19 20:33] VITALS: TEMP 98.1
[2023-04-19 22:00] VITALS: BP 142/89; O2SAT 97
== END 2023-04-19 22:03 | disposition home or self-care (01) ==
LOC: M ED 18:38
DX: T63.441A Toxic effect of venom of bees, accidental (unintentional), initial encounter (principal); Z91.048 Other nonmedicinal substance allergy status; Z79.52 Long term (current) use of systemic steroids; Z79.899 Other long term (current) drug therapy
CPT/HCPCS: 96361; 96374; 99284; J2405; J2930; S0028

== ENCOUNTER 2023-11-19 12:52 | Emergency (ER) | payer OTHER ==
[~2023-11-19] VITALS: Ht 165.1 cm; Wt 100.8 kg
[~2023-11-19 12:52] MED LIST changes: +CETI10CH PO; +ONDA4TAB6 PO; +PRED20TA PO
[2023-11-19] MEDS ORDERED: DULO1CAP5 (13:14)
[2023-11-19] MEDS ORDERED: AMOX875T2 (13:14)
[2023-11-19] MEDS: predniSONE 20 MG TAB PO ONE (16:23)
[2023-11-19] MEDS: KETOROLAC 60MG 2ML VIAL IM ONE (16:26)
[2023-11-19 16:38] VITALS: BP 166/74; TEMP 97.1; O2SAT 98
== END 2023-11-19 16:40 | disposition home or self-care (01) ==
LOC: M ED 12:52
DX: J06.9 Acute upper respiratory infection, unspecified (principal); F10.10 Alcohol abuse, uncomplicated; R51.9 Headache, unspecified; Z91.048 Other nonmedicinal substance allergy status; Z79.2 Long term (current) use of antibiotics; Z79.899 Other long term (current) drug therapy
CPT/HCPCS: 87486; 87581; 87633; 87798; 96372; 99283; J1885; J7512

== ENCOUNTER → 2024-01-09 | Outpatient (CLI) | payer OTHER ==
[~2024-01-09] MED LIST changes: +AMOX875T2; +DULO1CAP5
== END ==
LOC: M PLAIMG 11:28
PROVIDERS: ATTEND Internal Medicine
DX: J32.8 Other chronic sinusitis (principal)

== ENCOUNTER → 2024-01-15 | Outpatient (CLI) | payer OTHER ==
[2024-01-15 09:59] LABS: BASO % 0.4 % (0.0-1.0); EOS # 0.3 10^3/uL (0.0-0.5); EOS % 3.8 % (0.0-3.0); HEMATOCRIT 42.6 % (36.0-47.0); HEMOGLOBIN 14.4 g/dl (12.0-15.5); LYMPH # 1.5 10^3/uL (1.5-5.0); LYMPH % 18.5 % (24.0-44.0); MEAN CORPUSCULAR HEMOGLOBIN 30.9 pg (27.0-33.0); MEAN CORPUSCULAR HGB CONC 33.8 g/dl (32.0-36.5); MEAN CORPUSCULAR VOLUME 91.4 fl (80.0-96.0); MONO # 0.9 10^3/uL (0.0-0.8); MONO % 10.5 % (2.0-8.0); NEUTROPHILS # 5.4 10^3/uL (1.5-8.5); NEUTROPHILS % 66.6 % (36.0-66.0); PLATELET COUNT, AUTOMATED 255 10^3/uL (150-450); RED BLOOD COUNT 4.66 10^6/uL (4.00-5.40); WHITE BLOOD COUNT 8.1 10^3/uL (4.0-10.0)
[2024-01-15 10:07] LABS: ERYTHROCYTE SEDIMENTATION RATE 45 mm/hr (0-20)
[2024-01-15 10:24] LABS: HEMOGLOBIN A1c 5.5 % (4.0-6.0)
[2024-01-15 10:31] LABS: CORTISOL AM 8.6 UG/DL (4.3-22.4)
[2024-01-15 10:32] LABS: HCG, SERUM QUANTITATIVE < 2.6 MIU/ML (<4.2)
[2024-01-15 10:36] LABS: FERRITIN 152.3 NG/ML (7.3-270.7); FOLLICLE STIMULATING HORMONE 11.7 mIU/ML; IRON (FE) 73 UG/DL (50-170); PERCENT SATURATION 25.7 % (13.2-45.0); TOTAL IRON BINDING CAPACITY 284 UG/DL (250-425)
[2024-01-15 10:37] LABS: ALBUMIN 3.7 G/DL (3.2-5.2); ALKALINE PHOSPHATASE 85 U/L (46-116); ALT/SGPT 42 U/L (7.0-40); AST/SGOT 23 U/L (<34); BILIRUBIN,TOTAL 0.6 MG/DL (0.3-1.2); BLOOD UREA NITROGEN 12 MG/DL (9-23); CALCIUM LEVEL 8.8 MG/DL (8.5-10.1); CARBON DIOXIDE LEVEL 26 MMOL/L (20-31); CHLORIDE LEVEL 105 MMOL/L (98-107); CHOLESTEROL LEVEL 216 MG/DL (<200); CHOLESTEROL RISK RATIO 4.26 (<5); CREATININE FOR GFR 0.81 MG/DL (0.55-1.30); GLOMERULAR FILTRATION RATE > 60.0 (>58); GLUCOSE, FASTING 87 MG/DL (60-100); HDL CHOLESTEROL 50.7 MG/DL (>40); LDL CHOLESTEROL 139.5 MG/DL (<100); MAGNESIUM LEVEL 1.9 MG/DL (1.8-2.4); NON-HDL-C 165.3 MG/DL; POTASSIUM SERUM 4.3 MMOL/L (3.5-5.1); PROLACTIN 14.18 NG/ML; SODIUM LEVEL 138 MMOL/L (136-145); THYROID STIMULATING HORMONE 1.636 uIU/ML (0.55-4.78); TOTAL PROTEIN 7.3 G/DL (5.7-8.2); TRIGLYCERIDES LEVEL 129 MG/DL (<150)
[2024-01-15 10:38] LABS: ESTRADIOL 74.9 PG/ML; FREE T4 0.93 NG/DL (0.89-1.76); PROGESTERONE 7.04 NG/ML
[2024-01-15 10:39] LABS: VITAMIN B12 LEVEL 943 PG/ML (211-911)
[2024-01-15 10:41] LABS: FOLATE 15.41 NG/ML (>5.4)
== END ==
LOC: M LAB 08:29
PROVIDERS: ATTEND Emergency Medicine
DX: Z00.01 Encounter for general adult medical examination with abnormal findings (principal); Z13.29 Encounter for screening for other suspected endocrine disorder; Z13.21 Encounter for screening for nutritional disorder; E55.9 Vitamin D deficiency, unspecified; R53.83 Other fatigue; R87.1 Abnormal level of hormones in specimens from female genital organs; Z79.890 Hormone replacement therapy

== ENCOUNTER → 2024-01-20 | Outpatient (CLI) | payer OTHER | LOC: M RAD 10:43 | PROVIDERS: ATTEND Physician Assistant | DX: R05.9 Cough, unspecified (principal) ==

== ENCOUNTER 2024-12-28 18:56 | Emergency (ER) | payer OTHER ==
[~2024-12-28] VITALS: Ht 162.6 cm; Wt 96.0 kg
[~2024-12-28 18:56] MED LIST changes: +ONDA-282 PO; -ONDA4TAB6 PO
[2024-12-28 19:00] VITALS: TEMP 96.9
[2024-12-28 19:58] VITALS: BP 113/68
[2024-12-28 20:46] LABS: HEMATOCRIT 36.4 % (36.0-47.0); HEMOGLOBIN 12.2 g/dl (12.0-15.5); MEAN CORPUSCULAR HEMOGLOBIN 29.5 pg (27.0-33.0); MEAN CORPUSCULAR HGB CONC 33.5 g/dl (32.0-36.5); MEAN CORPUSCULAR VOLUME 87.9 fl (80.0-96.0); PLATELET COUNT, AUTOMATED 229 10^3/uL (150-450); RED BLOOD COUNT 4.14 10^6/uL (4.00-5.40); WHITE BLOOD COUNT 20.1 10^3/uL (4.0-10.0)
[2024-12-28 20:59] LABS: HCG, SERUM QUANTITATIVE < 2.6 MIU/ML (<4.2); LIPASE 19 U/L (12-53)
[2024-12-28 21:01] LABS: ALBUMIN 2.3 G/DL (3.2-5.2); ALKALINE PHOSPHATASE 175 U/L (35-104); ALT/SGPT 102 U/L (7.0-40); AST/SGOT 103 U/L (<34); BILIRUBIN,DIRECT 0.6 MG/DL (<0.4); BILIRUBIN,TOTAL 1.1 MG/DL (0.3-1.2); BLOOD UREA NITROGEN 13 MG/DL (9-23); CALCIUM LEVEL 8.2 MG/DL (8.5-10.1); CARBON DIOXIDE LEVEL 23 MMOL/L (20-31); CHLORIDE LEVEL 102 MMOL/L (98-107); CREATININE FOR GFR 1.08 MG/DL (0.55-1.30); GLOMERULAR FILTRATION RATE 66.2 (>58); GLUCOSE, FASTING 104 MG/DL (60-100); POTASSIUM SERUM 3.7 MMOL/L (3.5-5.1); SODIUM LEVEL 138 MMOL/L (136-145); TOTAL PROTEIN 6.2 G/DL (5.7-8.2)
[2024-12-28] MEDS: NS (Normal Saline) 0.9% 1,000 ML IV ONE (21:05)
[2024-12-28] MEDS ORDERED: ISOVUE-370 76% 100ML VIAL As Ordered ONE (21:10)
[2024-12-28 21:16] LABS: ATYPICAL LYMPH 1 % (0-5); BASOPHILS 1 % (0-1); LYMPHOCYTES 2 % (16-44); METAMYELOCYTES 2 % (0-0); MONOCYTES 4 % (0-5); NEUTROPHILS 78 % (28-66)
[2024-12-28 21:20] LABS: PLATELET ESTIMATE NORMAL (NORMAL)
[2024-12-28 21:21] LABS: DOHLE BODIES 2+
[2024-12-28 21:53] LABS: KETONE, URINE AUTO RFX NEGATIVE (NEGATIVE); LEUKOCYTE ESTERASE UR AUTO RFX NEGATIVE (NEGATIVE); NITRITE, URINE AUTO RFX NEGATIVE (NEGATIVE); RBC, URINE AUTO RFX 1 /HPF (0-3); SQUAM EPITHELIAL CELL UR AURFX 2 /HPF (0-6)
[2024-12-28 22:23] LABS: WBC, URINE AUTO RFX 11 /HPF (0-3)
[2024-12-28] MEDS ORDERED: DOXY-442 PO (22:33)
[2024-12-28] MEDS ORDERED: ONDA-282 PO (22:33)
[2024-12-28] MEDS ORDERED: AMOX875T2 PO (22:33)
[2024-12-28] MEDS ORDERED: FLUC150T9 PO (22:33)
[2024-12-28 22:41] VITALS: O2SAT 97
[2024-12-28] MEDS: AUGMENTIN 875 MG TAB PO ONE (22:44)
[2024-12-28] MEDS: DOXYCYCLINE HYCLATE 100MG TABLET PO ONE (22:45)
== END 2024-12-28 22:57 | disposition home or self-care (01) ==
LOC: M ED 18:56
DX: J18.9 Pneumonia, unspecified organism (principal); J45.909 Unspecified asthma, uncomplicated; M54.50 Low back pain, unspecified; Z91.09 Other allergy status, other than to drugs and biological substances; Z79.2 Long term (current) use of antibiotics; Z79.83 Long term (current) use of bisphosphonates; Z79.899 Other long term (current) drug therapy
CPT/HCPCS: 36415; 71046; 74177; 80048; 80076; 81001; 83690; 84702; 85025; 87088; 87186; 87486; 87581; 87633; 87798; 99284; Q9967

== ENCOUNTER → 2025-05-08 | Outpatient (REF) | payer OTHER ==
[~2025-05-08] MED LIST changes: +AMOX875T2 PO; +DOXY-442 PO; +FLUC150T9 PO
== END ==
LOC: M LAB REF 12:25
PROVIDERS: ATTEND Internal Medicine
DX: R73.03 Prediabetes (principal)

== ENCOUNTER → 2025-05-13 | Outpatient (CLI) | payer OTHER ==
[~2025-05-13] MED LIST changes: +ALBU10.7; +CYCL-707 PO; -DULO1CAP5; +DULO1CAP5 PO; +FLUT1BLS17; +LEVOTAB10 PO
== END ==
LOC: M PLAIMG 12:00
PROVIDERS: ATTEND Physician Assistant
DX: R91.8 Other nonspecific abnormal finding of lung field (principal)

== ENCOUNTER 2025-05-29 11:48 | Day surgery (SDC) | payer OTHER ==
[~2025-05-29] VITALS: Ht 165.1 cm; Wt 99.3 kg
[2025-05-29] MEDS ORDERED: MIDAZOLAM INJ 2 MG/2 ML VIAL As Ordered ONE (12:44)
[2025-05-29] MEDS ORDERED: dexAMETHasone 4 MG/ML 1 ML VIAL As Ordered ONE (12:44)
[2025-05-29] MEDS ORDERED: LIDOCAINE 2% 100 MG/5 ML SDV (FOR ANES.) As Ordered ONE (12:47)
[2025-05-29] MEDS ORDERED: ROCURONIUM BROMIDE 50MG/5ML VIAL As Ordered ONE (12:48)
[2025-05-29] MEDS ORDERED: SUGAMMADEX SODIUM 500 MG/5 ML VIAL As Ordered ONE (14:10)
[2025-05-29] MEDS ORDERED: ONDANSETRON 4MG 2ML VIAL As Ordered ONE (14:10)
[2025-05-29] MEDS ORDERED: PHENYLephrine 500MCG 5ML (100MCG/ML) SYRINGE As Ordered ONE (14:13)
[2025-05-29] MEDS: COCAINE 4% 4 ML NASAL SOLUTION BTL As Ordered ONE (14:18)
[2025-05-29] MEDS ORDERED: ACETAMINOPHEN 1000MG/100ML IV BAG As Ordered ONE (14:21)
[2025-05-29] MEDS: LIDOCAINE W/EPINEPHrine 1% 20 ML VIAL As Ordered ONE (14:57)
[2025-05-29] MEDS: OXYMETAZOLINE 0.05% NASAL SPRAY As Ordered ONE (14:57)
[2025-05-29] MEDS ORDERED: LR 1,000 ML IV SCH (15:15)
[2025-05-29] MEDS: ONDANSETRON 4MG 2ML VIAL IV PRN (15:33)
[2025-05-29] MEDS: HYDROMORPHONE HCL 0.5 MG/0.5 ML SYRINGE IV PRN (15:33)
[2025-05-29 16:55] VITALS: BP 123/67; TEMP 97.1; O2SAT 96
== END 2025-05-29 17:35 | disposition home or self-care (01) ==
LOC: M SDC 11:48
PROVIDERS: ATTEND Otolaryngology
DX: J34.2 Deviated nasal septum (principal); J34.3 Hypertrophy of nasal turbinates; J45.909 Unspecified asthma, uncomplicated; D64.9 Anemia, unspecified; Z79.899 Other long term (current) drug therapy
CPT/HCPCS: 30140; 30520; 81025; C9143; J0131; J1100; J1171; J2250; J2371; J2405; J3010